=== PATIENT | male | born 1980 | race Caucasian/White ===

== ENCOUNTER 2023-03-27 10:53 | Emergency (ER) | payer OTHER, SELFPAY ==
[2023-03-27 10:55] VITALS: BP 129/97; PULSE 68; RESP 14; TEMP 36.6; O2SAT 98; BMI 36.2
--- NOTE | 2023-03-27 11:06 | EKG12_ITS ---
Test Reason : CP Blood Pressure : / mmHG Vent. Rate : 063 BPM Atrial Rate : 063 BPM P-R Int : 142 ms QRS Dur : 098 ms QT Int : 392 ms P-R-T Axes : 022 -03 -03 degrees QTc Int : 401 ms Normal sinus rhythm Normal ECG No previous ECGs available Confirmed by KRISTIE JONES, INDER ([id number]), editor news ELIZABETH MEHTA ([id number]) on 04/02/2023 10:10:13 AM Referred By: JESSICA Confirmed By:INDER FLOWERS MD
[2023-03-27] MEDS: Aspirin 81 MG TAB.CHEW 324 MG PO (11:11)
[2023-03-27 11:35] LABS: Absolute Lymphocyte Count 2.04 X10^3/uL (0.83-4.51); Absolute Neutrophil Count 3.8 X10^3/uL (2.0-7.7); Basophil# 0.04 X10^3/uL; Basophil% 0.6 % (0-1); Eosinophils% 1.5 % (0-5); Hematocrit 45.2 % (40-54); Hemoglobin 15.1 g/dL (13.0-16.5); Lymphocyte # 2.04 X10^3/ul (0.83-4.51); Lymphocyte % 31.3 % (19-41); Mean Corp Hgb Conc 33.4 g/dL (32-36); Mean Corpuscular Hgb 30.8 pg (27.0-32.0); Mean Corpuscular Volume 92.2 fL (80-94); Mean Platelet Vol. 9.1 fl (6.2-12.0); Monocyte# 0.52 X10^3/uL; NRBC Flagged by Analyzer 0 % (0-5); Neutrophil # 3.79 X10^3/uL (2.7-7.7); Neutrophil % 58.1 % (47-70); Platelet Count 268 K/mm3 (150-450); RBC Distribution Width CV 12.1 % (11.6-14.6); RBC Distribution Width SD 40.5 fl (35.1-43.9); White Blood Count 6.5 K/mm3 (4.4-11.0)
[2023-03-27 11:52] LABS: Anion Gap 4 (5-15); BUN 14 mg/dL (7-18); BUN/Creat Ratio 13.7 RATIO (10-20); Calcium,Total 9.5 mg/dL (8.5-10.1); Chloride 103 mmol/L (98-107); Creatinine, Serum 1.02 mg/dL (0.70-1.30); EST Glomerular Filtration Rate 86 mL/min (>60); Est Glom Filt Rate - Afr Amer 104 mL/min (>60); Estimated Creatinine Clearance 111.93 ml/min; Glucose 109 mg/dL (74-106); Potassium 3.5 mmol/L (3.5-5.1); Sodium Level 137 mmol/L (136-145); Troponin-I HS (w/2H Reflex) < 3 pg/mL (3.0-78.0)
--- NOTE | 2023-03-27 11:57 | EDS_ITS ---
HPI History of Present Illness Chief Complaint: Chest Pain Narrative Narrative: Presents with chest pain that started in the middle of the night. It is left upper chest, somewhat reproducible and worse with some movements. No history of trauma. There is no pleuritic component. No back pain or tearing sensation. No lower extremity edema or calf pain. No recent travel history or immobilization. PFSH PFS Medical History no medical history Home Medications NK 03/27/23 [History Last Taken Unknown] Allergy/AdvReac Type Severity Reaction Status Date / Time No Known Allergies Allergy Verified 03/27/23 10:55 Surgical History no surgical history Social History Smoking Status: Never smoker ROS ROS ED ROS Narrative Past medical history: Reviewed Medications: Reviewed Social history: Noncontributory Review of systems: All systems negative except as indicated General: No fever Eyes: No visual changes ENT: No upper airway congestion, normal voice Neck: No neck pain Cardiovascular: Chest pain as in HPI Respiratory: No shortness of breath or cough Gastrointestinal: No abdominal pain, nausea vomiting or diarrhea Genitourinary: No dysuria Musculoskeletal: Denies myalgias no difficulty with ambulation Skin: No rash Neurological: No memory loss, confusion or any focal weakness Psych: No recent behavioral changes Hematologic: No easy bleeding or easy bruising EXAM Physical Exam Narrative Exam Narrative: Physical exam General: Well nourished, Well developed, No Acute Distress Head: Normocephalic, Atraumatic Eyes: Conjunctiva not pale ENT: Moist mucous membranes Neck: Supple, Nontender, No lymphadenopathy Cardiovascular: Regular rate, Regular rhythm Chest wall: Reproducible left upper chest wall pain. No rash. Respiratory: No distress, CTA bilaterally Abdomen: Soft, Nontender, Nondistended Back: Nontender, Normal Inspection. Negative for: CVA tenderness Extremities: Nontender, No edema Skin: Normal color, No rash Neurological: Alert, Normal Strength, Normal Sensation Psychological: Normal affect Const Vital Signs: 03/27/23 10:55 03/27/23 11:23 03/27/23 11:06 Temperature 98 F Temperature Source Temporal Pulse Rate 68 Respiratory Rate 14 Respiratory Effort Normal Non-Labored Respiratory Pattern Normal Blood Pressure 129/97 H Blood Pressure Mean 107 Pulse Ox 98 Oxygen Delivery Method Room Air Room Air 03/27/23 12:55 Temperature Temperature Source Pulse Rate 65 Respiratory Rate 18 Respiratory Effort Respiratory Pattern Blood Pressure 121/85 H Blood Pressure Mean 97 Pulse Ox 97 Oxygen Delivery Method Room Air MDM MDM MDM Narrative Medical decision making narrative: X-ray read by me as normal EKG shows sinus rhythm with a rate of 63. Normal NV and QTc intervals. No ischemic changes. Interpreted by emergency doctor Telemetry: Sinus rhythm with a rate in the 60s on the monitor without ectopy. MDM: Patient is ruled out from acute coronary syndrome standpoint, chest x-ray does not show pneumonia pneumothorax or mass. I am not worried about a pulmonary embolism, patient has no risk factors has a normal heart rate and is PERC negative. He has reproducible chest wall pain, he can self treat with Motrin. He does not meet admission criteria I will discharge him in stable condition. Lab Data Labs: Laboratory Results - last 24 hr 03/27/23 03/27/23 11:25 13:35 WBC 6.5 RBC 4.90 Hgb 15.1 Hct 45.2 MCV 92.2 MCH 30.8 MCHC 33.4 RDW Std Deviation 40.5 RDW Coeff of Rebecca 12.1 Plt Count 268 MPV 9.1 Immature Gran % (Auto) 0.500 Neut % (Auto) 58.1 Lymph % (Auto) 31.3 [place] % (Auto) 8.0 Eos % (Auto) 1.5 Baso % (Auto) 0.6 Absolute Neuts (auto) 3.8 Absolute Lymphs (auto) 2.04 Nucleated RBC % 0 Sodium 137 Potassium 3.5 Chloride 103 Carbon Dioxide 30.0 Anion Gap 4 L BUN 14 Creatinine 1.02 Estim Creat Clear Calc 111.93 Est GFR (MDRD) Af Amer 104 Est GFR (MDRD) Non-Af 86 BUN/Creatinine Ratio 13.7 Glucose 109 H Calcium 9.5 Troponin I High Sens < 3 L < 3 L Radiography Diagnostic Testing: Clinical Impression(s) from Imaging Studies Chest X-Ray 03/27/23 12:06 IMPRESSION: Normal x-ray examination of the chest. Electronically Signed: Marino Jama MD at 12:24 EDT , Discharge Plan Triage Chief Complaint: Chest Pain ED Provider: Trey Centeno Dx/Rx/DC Orders Clinical Impression: Acute chest wall pain, Chest pain Instructions: ED Chest Pain, Uncertain Cause Prescriptions: No Action NK Primary Care Provider: David Garcia Referrals: David Garcia MD [Primary Care Provider] -
--- NOTE | 2023-03-27 12:06 | RAD_ITS ---
STUDY: X-RAY CHEST REASON FOR EXAM: Male, 42 years old. Chest pain TECHNIQUE: Single AP portable view of the chest. COMPARISON: None. FINDINGS: EKG electrodes are seen. The lungs are clear and expanded. There is no demonstrated pleural abnormality. Normal size heart. Normal mediastinum and edi. Normal visualized pulmonary arteries. Normal visualized aortic arch and descending thoracic aorta. Normal visualized thoracic spine. Normal visualized ribs, clavicles, and shoulders. There is no demonstrated abnormality of the visualized soft tissue structures of the upper abdomen. RAD/Chest 1 View (Portable) IMPRESSION: Normal x-ray examination of the chest. Electronically Signed: Marino Jama MD at 12:24 EDT ,
[2023-03-27 12:55] VITALS: BP 121/85; PULSE 65; RESP 18; O2SAT 97
[2023-03-27 13:32] LABS: Reflex Troponin-HS? (from REC) Y
[2023-03-27 14:03] LABS: Troponin-I HS < 3 pg/mL (3.0-78.0)
[2023-03-27 14:10] VITALS: BP 129/72; PULSE 84; RESP 16; O2SAT 97
== END 2023-03-27 14:11 | disposition home or self-care (01) ==
PROVIDERS: Emergency Provider Emergency Medicine; PCP Family Medicine; Visit Provider Emergency Medicine
DX: R07.89 Other chest pain (principal)
CPT/HCPCS: 71045; 80048; 84484; 85025; 93005; 99284; A4216